=== PATIENT | female | born 2000 | race American Indian/Alaskan Native ===

== ENCOUNTER 2019-10-10 01:11 | Emergency (ER) | payer SELFPAY ==
[2019-10-10 01:18] VITALS: BP 116/74
[2019-10-10 02:03] LABS: Basophils # (Auto) 0.1 K/mm3 (0.0-0.1); Basophils % (Auto) 0.9 % (0.0-1.8); Eosinophils # (Auto) 0.2 K/mm3 (0.0-0.4); Eosinophils % (Auto) 3.5 % (0.0-4.3); Hematocrit 36.6 % (30.3-42.9); Hemoglobin 12.3 gm/dl (10.1-14.3); Lymphocytes % (Auto) 47.9 % (13.4-35.0); Mean Corpuscular HGB Conc 34 % (30-34); Mean Corpuscular Volume 96 fl (79-97); Monocytes # (Auto) 0.5 K/mm3 (0.0-0.8); Monocytes % (Auto) 8.3 % (0.0-7.3); Platelet Count 286 K/mm3 (140-440); Red Blood Count 3.81 M/mm3 (3.65-5.03); Red Cell Distribution Width 12.5 % (13.2-15.2)
[2019-10-10 02:28] LABS: Alanine Aminotransferase 8 units/L (7-56); Albumin 4.6 g/dL (3.9-5); BUN/Creatinine Ratio 30; Blood Urea Nitrogen 18 mg/dL (7-17); Calcium 9.6 mg/dL (8.4-10.2); Hemolysis Index 2
[2019-10-10] MEDS ORDERED: ACETAMINOPHEN 325 MG TAB PO ONE (06:40)
[2019-10-10] MEDS ORDERED: LIDOCAINE VISCOUS 2% 15 ML ORAL LIQD PO ONE (07:54)
[2019-10-10] MEDS ORDERED: ALUM-MAG HYDROXIDE-SIMETHICONE 200-200-20MG/5ML ORAL LIQD 30 ML PO ONE (07:54)
[2019-10-10] MEDS ORDERED: HYOSCYAMINE SUBL 0.125 MG TAB SL ONE (07:54)
--- NOTE | 2019-10-10 07:59 | Emergency Department Report ---
ED Abdominal Pain HPI - General Chief Complaint: Abdominal Pain Stated Complaint: SHARP UPPER ABDOMINAL/BACK PAIN X2DAYS Time Seen by Provider: 10/10/19 07:50 Source: patient Mode of arrival: Ambulatory Limitations: No Limitations - History of Present Illness Initial Comments: abd pain onset 2 days, epigastric, radiating to back, worse with eating, desc ribed as moderate, with associated nausea and diarrhea no vomiting, fevers, cp, urinary complaints MD Complaint: abdominal pain -: days(s) (2) Location: epigastric Radiation: back Migration to: no migration Severity: moderate Severity scale (0 -10): 10 Improves With: nothing Worsens With: eating Associated Symptoms: nausea, diarrhea. denies: vomiting - Related Data Previous Rx's Medication Instructions Recorded Last Taken Type Pantoprazole [Protonix] 40 mg PO QDAY #30 tablet 10/10/19 Unknown Rx Promethazine [Phenergan] 25 mg PO Q6HR PRN #12 tab 10/10/19 Unknown Rx Sucralfate [Carafate] 1 gm PO ACHS #560 ml 10/10/19 Unknown Rx Allergies Allergy/AdvReac Type Severity Reaction Status Date / Time No Known Allergies Allergy Verified 10/10/19 01:17 ED Review of Systems ROS: Stated complaint: SHARP UPPER ABDOMINAL/BACK PAIN X2DAYS Other details as noted in HPI Comment: All other systems reviewed and negative Gastrointestinal: as per HPI ED Past Medical Hx - Past Medical History Previous Medical History?: Yes Hx Asthma: Yes - Surgical History Past Surgical History?: No - Social History Smoking Status: Never Smoker Substance Use Type: None - Medications Home Medications: Home Medications Medication Instructions Recorded Confirmed Last Taken Type Pantoprazole [Protonix] 40 mg PO QDAY #30 tablet 10/10/19 Unknown Rx Promethazine [Phenergan] 25 mg PO Q6HR PRN #12 tab 10/10/19 Unknown Rx Sucralfate [Carafate] 1 gm PO ACHS #560 ml 10/10/19 Unknown Rx ED Physical Exam - General Limitations: No Limitations General appearance: alert, in no apparent distress - Head Head exam: Present: atraumatic, normocephalic - Eye Eye exam: Present: normal appearance - ENT ENT exam: Present: mucous membranes moist - Neck Neck exam: Present: normal inspection - Respiratory Respiratory exam: Present: normal lung sounds bilaterally. Absent: respiratory distress - Cardiovascular Cardiovascular Exam: Present: regular rate, normal rhythm. Absent: systolic murmur, diastolic murmur, rubs, gallop - GI/Abdominal GI/Abdominal exam: Present: soft, tenderness (mild epigastric), normal bowel sounds. Absent: guarding, rebound - Extremities Exam Extremities exam: Present: normal inspection - Back Exam Back exam: Present: normal inspection - Neurological Exam Neurological exam: Present: alert, oriented X3 - Psychiatric Psychiatric exam: Present: normal affect, normal mood - Skin Skin exam: Present: warm, dry, intact, normal color. Absent: rash ED Course Vital Signs 10/10/19 01:15 Temperature 97.8 F Pulse Rate 86 Respiratory 18 Rate Blood Pressure 116/74 O2 Sat by Pulse 98 Oximetry ED Medical Decision Making - Lab Data Result diagrams: 10/10/19 01:33 10/10/19 01:33 - Medical Decision Making epigastric pain worse with eating, mildly tender on exam no focal RUQ or RLQ tenderness will check labs, give GI cocktail, reassess suspect gastritis in setting of normal labs mom confirms recent regular NSAID use advised to avoid, will give meds, fu gi return precautions given - Differential Diagnosis gastritis, pud, pancreatitis Critical care attestation.: If time is entered above; I have spent that time in minutes in the direct care o f this critically ill patient, excluding procedure time. ED Disposition Clinical Impression: Gastritis due to nonsteroidal anti-inflammatory drug (NSAID) Disposition: - TO HOME OR SELFCARE Is pt being admited?: No Condition: Good Instructions: Abdominal Pain (ED), Gastritis (ED), Diet for Ulcers and Gastritis (ED) Prescriptions: Sucralfate [Carafate] 1 gm PO ACHS #560 ml Promethazine [Phenergan] 25 mg PO Q6HR PRN #12 tab PRN Reason: Nausea Pantoprazole [Protonix] 40 mg PO QDAY #30 tablet Referrals: PRIMARY CAREMD [Primary Care Provider] - 3-5 Days BELINDA COLEMAN MD [Staff Physician] - 3-5 Days Time of Disposition: 08:54
[2019-10-10] MEDS ORDERED: SUCRALFATE 1 GM/10 ML ORAL LIQD PO ONE (08:54)
== END 2019-10-10 09:06 | disposition home or self-care (01) ==
LOC: ED 01:11
DX: K29.60 Other gastritis without bleeding (principal); J45.909 Unspecified asthma, uncomplicated; Z79.899 Other long term (current) drug therapy
CPT/HCPCS: 36415; 80053; 83690; 84703; 85025

== ENCOUNTER 2021-04-23 09:09 | Emergency (ER) | payer SELFPAY ==
[2021-04-23 09:53] VITALS: BP 112/83
== END 2021-04-23 10:35 ==
LOC: ED 09:09
DX: J45.909 Unspecified asthma, uncomplicated (principal); Z53.21 Procedure and treatment not carried out due to patient leaving prior to being seen by health care provider